=== PATIENT | male | born 1965 | race Caucasian/White ===

== ENCOUNTER 2025-03-19 08:19 | Outpatient (CLI) | payer BC, SELFPAY ==
--- NOTE | ~2025-03-19 | US_ITS ---
US right upper quadrant INDICATION: Right upper quadrant pain PROCEDURE: Realtime limited abdominal ultrasound. COMPARISON: No prior studies for comparison. FINDINGS: Visualized pancreas is unremarkable. The liver is homogeneous. No sonographic evidence for a liver mass. Portal vein is unremarkable. Gallbladder is unremarkable. No gallbladder wall thickening. No gallstones. No Diop's sign. Common duct measures 4 mm. IMPRESSION: 1: Unremarkable right upper quadrant ultrasound. If symptoms persist or worsen, consider a short-term follow-up study or additional imaging for further assessment. Reviewed, dictated and finalized at location Q. IMPRESSION: 1: Unremarkable right upper quadrant ultrasound. If symptoms persist or worsen, consider a short-term follow-up study or additio nal imaging for further assessment.
== END 2025-03-19 08:20 | disposition home or self-care (01) ==
LOC: MICIMG 08:21
PROVIDERS: PCP Family Medicine; Visit Provider Family Medicine
DX: R07.9 Chest pain, unspecified (principal); K22.4 Dyskinesia of esophagus
CPT/HCPCS: 76705